=== PATIENT | male | born 1975 | race Caucasian/White ===

== ENCOUNTER 2019-06-16 10:02 | Inpatient (IN) | payer OTHER, SELFPAY ==
[2019-06-16] VITALS (9 sets, daily range): BP systolic 157–175; BP diastolic 84–109; PULSE 99–136; RESP 22–34; TEMP 36.4–37.1; O2SAT 91–99; BMI 23.9
--- NOTE | ~2019-06-16 | XR_ITS ---
XR chest 2V DATE: 06/16/2019 10:17 INDICATION: Cough. Flu onset 5 days ago. TECHNIQUE: PA and lateral views COMPARISON: 11/18/2009 two-view chest FINDINGS: There are patchy bilateral basilar lower lobe infiltrates. The remaining lung chavez are cl ear. Normal heart size. No hilar or mediastinal enlargement. No pleural effusion or pulmonary vascular con gestion or pneumothorax. IMPRESSION: Bibasilar lower lobe infiltrates, suggesting pneumonia Reviewed, dictated and finalized at location A. FACTURING TEACHER
--- NOTE | 2019-06-16 10:17 | ED.URI ---
HPI - URI/Sore Throat General Chief Complaint: Upper Respiratory Infection Stated Complaint: HAS FLU, R/O PNEUMONIA Time Seen by Provider: 06/16/19 10:12 Source: patient Mode of arrival: ambulatory Limitations: no limitations History of Present Illness HPI Narrative: A 44 y/o male presents to the ED with c/o possible pneumonia. Pt states that on 06/08/19 he started to have nonproductive cough, fever, body aches, and chills. He recently had a flu swab done at [facility] and was diagnosed with Influenza A. Pt adds that the fever, body aches, and chills are resolved, but the cough has now become productive. He reports N/V, chest congestion, SOB with exertion, and fatigue, but denies CP, ABD pain, and diarrhea. Pt notes that the vomiting is due to the cough. He got his flu shot this year. Dr. Neff is his PCP. He has a PMHx of anxiety and is a nonsmoker. MD elicited complaint: other (Possible pneumonia) Pertinent past history: other (Influenza A) Onset (ago): day(s) (8) Consistency: constant Context: other (Recent Influenza A) Associated symptoms: cough (Productive), shortness of breath (With exertion), nausea, vomiting and other (Chest congestion, fatigue) Related Data Home Medications Medication Instructions Recorded Confirmed No Home Medications 06/16/19 06/16/19 Allergies Allergy/AdvReac Type Severity Reaction Status Date / Time No Known Allergies Allergy Verified 06/16/19 10:25 Review of Systems Review of Systems: All systems reviewed & are unremarkable except as noted in HPI and below Constitutional: Constitutional: Denies body ache(s), Denies chills, Reports fatigue and Denies fever(s) Cardiovascular: Cardiovascular: Denies chest pain and Reports other (Chest congestion) Respiratory: Respiratory: Reports cough (Productive) and Reports dyspnea on exertion Gastrointestinal: Gastrointestinal: Denies abdominal pain, Denies diarrhea, Reports nausea and Reports vomiting PMFSH Past Medical History Medical History Anxiety Influenza A Surgical History Surgical History No pertinent past surgical history Family History Family History Father Hypertension Diabetes mellitus Acute myocardial infarction Father No problems noted. Social History Social History (Updated 06/16/19 @ 15:26 by Kvng Redding MD) Social History: . Resides in his own home with his spouse. Has grown children 1 in college. 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 Smoking status: Never smoker Alcohol intake: never Substance use: never Living arrangements: with family Occupation/Education: occupation Gender identity (if verbalized by the patient): Male Spiritual care concerns: No Agree to blood products: Yes Exam Const: General: cooperative, no acute distress and alert Nutritional Appearance: well nourished Orientation/consciousness: patient oriented x3 Limitations: no limitations HENMT: Mouth: Yes lip normal, Yes moist mucous membranes and Yes other (Phlegm in back of throat) Resp: Effort & Inspection: normal respiratory effort Auscultation: rhonchi (Scattered, most prominent in left lung base) Cardio: Rate: tachycardic Rhythm: regular rhythm GI: GI Palp: Yes Soft to palpation and No Tenderness to palpation present (GI) Auscultation: normal bowel sounds Skin: General skin exam: normal color Neuro: General: patient oriented x3 Cognition (Neuro): normal cognition Speech: normal speech Extrem: General: normal to inspection, full ROM and no clubbing, cyanosis or edema Psych: Mental Status: mental status grossly normal Affect: normal affect Attitude: cooperative Course Course Emergency Course: Patient presents to the emergency department with tachycardia, tachypnea, and worsening respiratory symptoms after having recently been diagno
[2019-06-16 10:54] LABS: Basophils Percent Auto 0.2 % (0.2-1.2); Hematocrit 47.6 % (42.0-52.0); Hemoglobin 16.1 g/dL (14.0-18.0); Immature Granulocyte Absolute 1.82 K/mm3 (0.00-0.031); Immature Granulocyte Percent A 12.1 % (0-0.5); Lymphocytes Absolute Auto 1.05 K/mm3 (0.9-3.2); Mean Corpuscular HGB Conc 33.8 g/dl (32-36); Mean Corpuscular Hemoglobin 28.9 pg (26-34); Mean Corpuscular Volume 85.3 fl (80-100); Mean Platelet Volume 9.3 fl (7.4-10.4); Monocytes Absolute Auto 1.4 K/mm3 (0.1-0.6); Monocytes Percent Auto 9.4 % (2.6-8.5); Neutrophils Absolute Auto 10.8 K/mm3 (1.3-6.7); Neutrophils Percent Auto 71.3 % (45.5-73.1); Platelet Count Result 393 k/mm3 (150-375); Red Blood Count 5.58 M/mm3 (4.6-6.20); Red Cell Distribution Width 12.1 % (11.5-14.5); White Blood Count 15.1 K/mm3 (4.5-10.0)
[2019-06-16 11:04] LABS: INR 1.1; Partial Thromboplastin Time 25.1 SECONDS (22.3-36.8); Prothrombin Time 13.7 Seconds (11.1-14.7)
[2019-06-16 11:10] LABS: Add Urine Microscopic? YES; Appearance Urine Clear (Clear); Bilirubin Urine Negative (Negative); Blood Urine 1+ (Negative); Color Urine Straw (Yellow); Glucose Urine UA 3+ mg/dL (Negative); Ketones Urine 2+ mg/dL (Negative); Leukocyte Esterase Ur Negative LEU/UL (Negative); Mucus Urine Rare /lpf; Nitrate Urine Negative (Negative); Protein Urine 2+ mg/dL (Negative); Squamous Epithelial Cell Urine Rare /hpf (Few); Urobilinogen Urine Negative mg/dL (<2.0); WBC Urine 0-3 /hpf
[2019-06-16 11:10] LABS: Alanine Aminotransferase 25 U/L (4-50); Albumin Level 4.3 g/dL (3.5-5.1); Alkaline Phosphatase 239 U/L (38-126); Aspartate Amino Transferase 30 U/L (17-59); Bilirubin,Total 0.8 mg/dL (0.2-1.3); Blood Urea Nitrogen 16 mg/dL (9-20); Carbon Dioxide 12 mmol/L (22-30); Chloride 90 mmol/L (98-107); Estimated CRCL calculation 105 ml/min; Estimated Glomerular Filt Rate > 60; Potassium 4.2 mmol/L (3.4-5.0); Sodium 133 mmol/L (137-145)
[2019-06-16 11:15] LABS: Glucose 511 mg/dL (75-110)
[2019-06-16 11:29] LABS: CRP 25.4 mg/dL (<1.0)
--- NOTE | 2019-06-16 13:05 | PC.NURSE ---
pulse ox 91%. placed on 2l via nc
--- NOTE | 2019-06-16 13:32 | ADMGEN ---
This patient, Lebron aDcosta ., was admitted to IMU Room 207-01. Patient/family oriented to hospital policies and general routines including ID bracelet, bed and alarms, visiting hours, pain management, procedures, bathroom and other care routines, personal items, smoking policy, room service/diet, and visiting hours. Valuables list has been completed. Information on how to activate the Rapid Response Team has been discussed. Patient/Family are encouraged to report perceived risks to care and to ask questions if they do not understand what they are told or what they should do.
[2019-06-16] MEDS: LACTATED RINGERS 1,000 ML 150 ML IV CONT ×2 (13:40→20:19)
[2019-06-16 13:42] LABS: Glucose Point of Care 363 (65-105)
--- NOTE | 2019-06-16 15:22 | PM.IMHP ---
H&P: HPI History of Present Illness Chief complaint: Sepsis/Pneumonia Narrative: Lebron Dacosta Jr. is a 44 year old male who was in his usual and excellent state of health until about 1 week ago. He flew to [place] 9 days ago and returned 6 days ago. About 7 days ago he began have a nonproductive cough and sore throat with some hoarseness. He had some body aches but no fevers or chills or sweats. He felt worse on the trip home. He went to urgent care and had a flu swab that was positive. Because he was otherwise relatively young and healthy the recommended symptomatic treatment only as he had already been ill for a couple of days. He was getting better until about 2 days ago when he began to have a productive cough and worsened body aches. He coughed up yellow sputum. He had mild aching in both lateral chest tejada with coughing. He was very fatigued. Poor appetite. Not eating and drinking much. On the day of admission he was short of breath with walking across the room at home so he presented to the emergency department. Denied other chest pain. Denied wheezing. Denied fevers or chills or diaphoresis. Denied abdominal pain nausea vomiting or diarrhea. Denied dysuria hematuria. Denied melena hematochezia. Denied rash or itching. Denied back pain or joint pain or joint swelling. Did have some headache is part of the body aches but nothing severe. Review of Systems Review of Systems: All systems reviewed & are unremarkable except as noted in HPI and below PMFSH Past Medical History Medical History Anxiety Influenza A Surgical History Surgical History No pertinent past surgical history Family History Family History Father Hypertension Diabetes mellitus Acute myocardial infarction Father No problems noted. Social History Social History (Updated 06/16/19 @ 15:26 by Kvng Redding MD) Social History: . Resides in his own home with his spouse. Has grown children 1 in college. 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 Smoking status: Never smoker Alcohol intake: never Substance use: never Living arrangements: with family Occupation/Education: occupation Gender identity (if verbalized by the patient): Male Spiritual care concerns: No Agree to blood products: Yes Meds Home Medications and Allergies Home Medications Medication Instructions Recorded Confirmed Type No Home Medications 06/16/19 06/16/19 History Allergies Allergy/AdvReac Type Severity Reaction Status Date / Time No Known Allergies Allergy Verified 06/16/19 10:25 Vital Signs Vital Signs - 24 hr 06/16/19 10:24 06/16/19 13:04 06/16/19 14:00 Temperature 97.6 F Pulse Rate 136 H 116 H 123 H Respiratory Rate 34 H 30 H Blood Pressure 175/109 H 162/94 H Pulse Oximetry 98 91 Exam Narrative: Exam Narrative: HEENT: EOMI, PERRL, mild posterior pharyngeal erythema without exudates NECK: No JVD, adenopathy, or thyromegaly CHEST: Bilateral lower lobe rhonchi and coarse crackles. HEART: NL S1/S2, regular, no murmur ABDOMEN: BS+, soft, nontender, no mass, no bruits EXTREMITIES: No cyanosis, edema, or clubbing NEUROLOGIC: CN intact and symmetric to inspection. MUSCULOSKELETAL: Tone and strength symmetric. PSYCH: Alert. Oriented to person, place, and time. H&P: Results Labs Labs: Short CBC 06/16/19 Range/Units 10:47 WBC 15.1 H (4.5-10.0) K/mm3 Hgb 16.1 (14.0-18.0) g/dL Hct 47.6 (42.0-52.0) % Plt Count 393 H (150-375) k/mm3 BMP 06/16/19 10:47 Sodium 133 L Potassium 4.2 Chloride 90 L Carbon Dioxide 12 L BUN 16 Creatinine 0.80 Glucose 511 H* Calcium 10.0 Liver Function 06/16/19 Range/Units 10:47 Total Bilirubin 0.8 (0.2-1.3) mg/dL AST 30 (17-59) U/L ALT 25 (4-50) U/L
[2019-06-16 16:59] LABS: Glucose Point of Care 345 (65-105)
[2019-06-16] MEDS: INSULIN ASPART (*BKC) 100 UNITS/ML SUB-Q (18:05)
[2019-06-16] MEDS: INSULIN GLARGINE (*BKC) 100 UNITS/ML 15 UNITS SUB-Q (20:19)
[2019-06-16 20:25] LABS: Glucose Point of Care 384 (65-105)
[2019-06-17] VITALS (14 sets, daily range): BP systolic 148–168; BP diastolic 85–95; PULSE 78–125; RESP 16–20; TEMP 36.1–37.6; O2SAT 94–99; BMI 24.0
[2019-06-17] MEDS: LACTATED RINGERS 1,000 ML 150 ML IV CONT (04:12)
[2019-06-17 04:57] LABS: Hematocrit 40.8 % (42.0-52.0); Hemoglobin 13.9 g/dL (14.0-18.0); Mean Corpuscular HGB Conc 34.1 g/dl (32-36); Mean Corpuscular Hemoglobin 28.9 pg (26-34); Mean Corpuscular Volume 84.8 fl (80-100); Mean Platelet Volume 8.8 fl (7.4-10.4); Platelet Count Result 322 k/mm3 (150-375); Red Blood Count 4.81 M/mm3 (4.6-6.20); Red Cell Distribution Width 11.9 % (11.5-14.5); White Blood Count 13.2 K/mm3 (4.5-10.0)
[2019-06-17 05:22] LABS: Hemoglobin A1C 11.2 % (<5.7); LDL Cholesterol Direct 108 mg/dL
[2019-06-17 05:37] LABS: Blood Urea Nitrogen 10 mg/dL (9-20); Calcium 8.7 mg/dL (8.4-10.2); Carbon Dioxide 13 mmol/L (22-30); Chloride 99 mmol/L (98-107); Cholesterol 164 mg/dL (0-200); Estimated CRCL calculation 136 ml/min; Estimated Glomerular Filt Rate > 60; Glucose 279 mg/dL (75-110); HDL Direct 21 mg/dL; Potassium 3.5 mmol/L (3.4-5.0); Sodium 132 mmol/L (137-145); Triglycerides 167 mg/dL (<150)
[2019-06-17 08:41] LABS: Glucose Point of Care 211 (65-105)
[2019-06-17] MEDS: INSULIN ASPART (*BKC) 100 UNITS/ML SUB-Q ×4 (09:24→17:09)
[2019-06-17] MEDS: ATORVASTATIN 20 MG TABLET PO (10:44)
[2019-06-17 13:34] LABS: Glucose Point of Care 280 (65-105)
--- NOTE | 2019-06-17 14:23 | PCDIET ---
Reviewed carbohydrate counting with patient and ; both were highly motivated to adhere to recommendations. Various initial questions answered. Discussed importance of consistent intake and eating in the morning (patient normally skips breakfast meal). Provided suggestions for meals/snacks. Reviewed carbohydrate containing foods, serving sizes, label reading, fiber, healthy preparation methods, avoidance of unhealthy fats, etc. Patient generally reports healthy diet with fruits, vegetables, lean meats, but plans to work on eating something at breakfast and modifying portion size. Provided booklet Diabetes Management with RD contact information. Encouraged patient/spouse to call with any questions or concerns. Patient interested in outpatient nutrition referral once PCP is established.
[2019-06-17 17:05] LABS: Glucose Point of Care 326 (65-105)
--- NOTE | 2019-06-17 19:03 | PM.IMPN ---
Progress Note: A&P Assessment and Plan (1) CAP (community acquired pneumonia): Qualifiers: Laterality: unspecified laterality Qualified Code(s): J18.9 - Pneumonia, unspecified organism Code(s): J18.9 - Pneumonia, unspecified organism Status: Acute Assessment and Plan: Influenza a with secondary bacterial pneumonia and sepsis Continue IV fluid, ceftriaxone and azithromycin and vancomycin, with oxygen p.r.n. Clinically improved (2) Influenza A: Code(s): J10.1 - Influenza due to other identified influenza virus with other respiratory manifestations Status: Acute Assessment and Plan: Resolving but now with secondary bacterial pneumonia (3) Sepsis: Qualifiers: Sepsis type: sepsis due to unspecified organism Sepsis acute organ dysfunction status: without acute organ dysfunction Qualified Code(s): A41.9 - Sepsis, unspecified organism Code(s): A41.9 - Sepsis, unspecified organism Status: Acute Assessment and Plan: Due to influenza a with secondary bacterial pneumonia Evidence by leukocytosis, tachycardia, source of infection (4) Type 2 diabetes mellitus with hyperglycemia: Code(s): E11.65 - Type 2 diabetes mellitus with hyperglycemia Status: Acute Assessment and Plan: Continue basal and premeal insulin 06/17 add sliding scale Diabetic Ed and Personnel Manager to see 06/17 Possibly home 06/18-06/19 Subjective Date/time seen: 06/17/19 09:05 Review of Systems Review of Systems: All systems reviewed & are unremarkable except as noted in HPI and below Exam Narrative: Exam Narrative: HEENT: EOMI, PERRL, mild posterior pharyngeal erythema without exudates NECK: No JVD CHEST: Bilateral lower lobe rhonchi HEART: NL S1/S2, regular, no murmur ABDOMEN: BS+, soft, nontender, no mass, no bruits EXTREMITIES: No cyanosis, edema, or clubbing NEUROLOGIC: CN intact and symmetric to inspection. MUSCULOSKELETAL: Tone and strength symmetric. PSYCH: Alert. Oriented to person, place, and time. Objective Data Vital Signs Vital Signs: Vital Signs - 24 hr 06/16/19 19:53 06/16/19 20:00 06/16/19 22:00 Temperature 98.2 F Pulse Rate 117 H 116 H 99 Respiratory Rate 22 H Blood Pressure 164/90 H Pulse Oximetry 99 06/17/19 00:00 06/17/19 00:19 06/17/19 02:00 Temperature 97.0 F L Pulse Rate 98 106 H 99 Respiratory Rate 20 Blood Pressure 151/95 H Pulse Oximetry 99 06/17/19 04:00 06/17/19 04:26 06/17/19 06:00 Temperature 98.2 F Pulse Rate 102 H 104 H 92 Respiratory Rate 20 Blood Pressure 157/85 H Pulse Oximetry 94 06/17/19 07:27 06/17/19 10:00 06/17/19 12:00 Temperature 98.8 F 98.6 F Pulse Rate 110 H 125 H 112 H Respiratory Rate 20 18 Blood Pressure 157/93 H 155/85 H Pulse Oximetry 98 99 06/17/19 16:00 Temperature 98.1 F Pulse Rate 116 H Respiratory Rate 16 Blood Pressure 167/91 H Pulse Oximetry 97 Intake/Output Intake/Output: Intake & Output 06/14/19 06/15/19 06/16/19 06/17/19 23:59 23:59 23:59 23:59 Intake Total 4840 4415 Output Total 1775 1000 Balance 3065 3415 Meds/Results Medications: Active Medications Generic Name Dose Route Start Last Admin Trade Name Freq PRN Reason Stop Dose Admin Acetaminophen 650 mg 06/16/19 12:13 Tylenol Tablet PO Q4H PRN Mild Pain (1-3) or Fever Atorvastatin Calcium 20 mg 06/17/19 09:00 06/17/19 10:44 Lipitor PO 20 mg DAILY DAYLIN Administration Dextrose 12.5 gm 06/16/19 15:46 Dextrose 50% Syringe IV PUSH PRN PRN Hypoglycemia Protocol Glucagon 1 mg 06/16/19 15:46 Glucagon For Inj IM PRN PRN Hypoglycemia Protocol Glucose 15 gm 06/16/19 15:46 Glutose 15 PO PRN PRN Hypoglycemia Protocol Ceftriaxone Sodium/Dextrose 1 gm in 50 mls @ 100 mls/hr 06/17/19 09:00 06/17/19 11:20 Rocephin 1 Gm/D5w 50 Ml IVPB Infused Q24H DAYLIN [facility]
--- NOTE | 2019-06-17 19:55 | PC.NURSE ---
This patient, Lebron Metcalfpramod Victoria, was received from [ IMU] on 06/17/19 at 1955. Personal belongings list checked and signed. Patient/family oriented to unit policies and routines
--- NOTE | 2019-06-17 19:56 | PC.NURSE ---
This patient, Lebron Dacosta ., was transferred to [facility] on 06/17/19 at 1956. Personal belongings sent with patient. Belongings list checked and signed with receiving. Report given to Linda JOHNSON. Appropriate documentation sent with patient.
--- NOTE | 2019-06-17 21:01 | PC.NURSE ---
Called Caridad Sheldon RN regarding the patient's LR order since it is not infusing and in report I was told the patient is saline locked. Caridad Sheldon RN from IMU states that the ordered LR is not supposed to be going and for some reason they are unable to get the order off of the patient's MAR.
[2019-06-17] MEDS: INSULIN GLARGINE (*BKC) 100 UNITS/ML 15 UNITS SUB-Q (21:06)
[2019-06-17 21:14] LABS: Glucose Point of Care 276 (65-105)
[2019-06-17 23:46] LABS: Vancomycin Trough < 5.0 ug/mL (10.0-20.0)
[2019-06-18 06:00] VITALS: BP 155/94; PULSE 106; RESP 16; TEMP 36.9; O2SAT 96
[2019-06-18 06:04] LABS: Hematocrit 35.8 % (42.0-52.0); Hemoglobin 12.7 g/dL (14.0-18.0); Mean Corpuscular HGB Conc 35.5 g/dl (32-36); Mean Corpuscular Hemoglobin 28.8 pg (26-34); Mean Corpuscular Volume 81.2 fl (80-100); Mean Platelet Volume 8.8 fl (7.4-10.4); Platelet Count Result 288 k/mm3 (150-375); Red Blood Count 4.41 M/mm3 (4.6-6.20); Red Cell Distribution Width 11.7 % (11.5-14.5); White Blood Count 11.9 K/mm3 (4.5-10.0)
[2019-06-18 06:26] LABS: Blood Urea Nitrogen 8 mg/dL (9-20); Calcium 8.1 mg/dL (8.4-10.2); Carbon Dioxide 18 mmol/L (22-30); Chloride 96 mmol/L (98-107); Estimated CRCL calculation 195 ml/min; Estimated Glomerular Filt Rate > 60; Glucose 247 mg/dL (75-110); Potassium 2.8 mmol/L (3.4-5.0); Sodium 131 mmol/L (137-145)
[2019-06-18] MEDS: POTASSIUM CHLORIDE 20 MEQ TABLET.ER 40 MEQ PO (06:39)
[2019-06-18 08:03] LABS: Glucose Point of Care 215 (65-105)
[2019-06-18] MEDS: INSULIN ASPART (*BKC) 100 UNITS/ML SUB-Q ×5 (08:20→18:36)
[2019-06-18] MEDS: ATORVASTATIN 20 MG TABLET PO (08:23)
[2019-06-18 11:37] LABS: Glucose Point of Care 244 (65-105)
[2019-06-18] MEDS: POTASSIUM CHLORIDE 20 MEQ TABLET 40 MEQ PO ×2 (11:54→18:35)
[2019-06-18 14:00] VITALS: BP 153/95; PULSE 118; RESP 16; TEMP 36.6; O2SAT 98
[2019-06-18] MEDS: ONDANSETRON INJ 4 MG/2 ML VIAL IV PUSH (14:17)
[2019-06-18 14:22] LABS: Blood Urea Nitrogen 11 mg/dL (9-20); Calcium 8.2 mg/dL (8.4-10.2); Carbon Dioxide 19 mmol/L (22-30); Chloride 99 mmol/L (98-107); Estimated CRCL calculation 161 ml/min; Estimated Glomerular Filt Rate > 60; Glucose 306 mg/dL (75-110); Potassium 3.3 mmol/L (3.4-5.0); Sodium 131 mmol/L (137-145)
[2019-06-18 15:20] VITALS: PULSE 131; O2SAT 97
[2019-06-18 15:25] VITALS: PULSE 141; O2SAT 96
[2019-06-18 15:35] VITALS: PULSE 130; O2SAT 96
--- NOTE | 2019-06-18 16:42 | HOMEO2EVAL ---
Home Oxygen Evaluation RC: Home Oxygen (O2) Evaluation Start: 06/18/19 08:00 Freq: ONCE Status: Active Protocol: RPE Activity Type Activity Date Activity User E-Sign Co-Sign Detail Recorded Client Recorded Date Recorded By Document 06/18/19 15:20 NIKOS [id number] 06/18/19 16:42 NIKOS Document 06/18/19 15:25 NIKOS [id number] 06/18/19 16:42 NIKOS Document 06/18/19 15:35 NIKOS [id number] 06/18/19 16:42 NIKOS 06/18/19 06/18/19 06/18/19 15:20 15:25 15:35 Home O2 Evaluation Test Phase Resting Exercise Resting Oxygen Delivery Room Air Room Air Room Air Pulse Oximetry (90-100 %) 97 96 96 Pulse Rate (60-100 beats/min) 131 H 141 H 130 H Home Oxygen Evaluation Comments no home o2 needs
--- NOTE | 2019-06-18 16:42 | PCRCNOTE ---
Home O2 eval done, no home O2 needs.
[2019-06-18 17:06] LABS: Glucose Point of Care 276 (65-105)
--- NOTE | 2019-06-18 20:13 | PC.NURSE ---
Patient discharged @1845. IV was removed. Patient left via POV with . Discharge instructions read and verbalized understanding.
--- NOTE | 2019-06-20 18:35 | PM.DS ---
DS: Diagnosis Admitting Diagnosis Admitting Diagnosis: Pneumonia, unspecified organism Discharge Diagnosis (1) CAP (community acquired pneumonia): Qualifiers: Laterality: unspecified laterality Qualified Code(s): J18.9 - Pneumonia, unspecified organism Code(s): J18.9 - Pneumonia, unspecified organism Status: Acute Assessment and Plan: Influenza a diagnosis 1 week prior with secondary bacterial pneumonia and sepsis on admission. , ceftriaxone and azithromycin and vancomycin, x3 days and will receive 4 days of levofloxacin 750 p.o. on discharge Clinically improved with falling white blood cell count Blood cultures were negative at the time of discharge (2) Sepsis: Qualifiers: Sepsis type: sepsis due to unspecified organism Sepsis acute organ dysfunction status: without acute organ dysfunction Qualified Code(s): A41.9 - Sepsis, unspecified organism Code(s): A41.9 - Sepsis, unspecified organism Status: Acute Assessment and Plan: Due to influenza a with secondary bacterial pneumonia Evidence by leukocytosis, tachycardia, source of infection WBC down to 11 by discharge (3) Type 2 diabetes mellitus with hyperglycemia: Code(s): E11.65 - Type 2 diabetes mellitus with hyperglycemia Status: Acute Assessment and Plan: Continue basal and premeal insulin, Lantus 15 units HS and novel log 4 units a.c. 06/17 add sliding scale Diabetic Ed and Front Office Administrator saw 06/17 instructed on self administration of insulin, general diabetes Education, and diet A1c was just above 13 and FBS was 247 the day of discharge. DS: Summary Hospital Course Hospital Course: 44-year-old white male admitted 1 week post influenza with history increasing cough weakness found to have pneumonia with with sepsis and new onset diabetes mellitus. A1c was above 13. Treated with ceftriaxone azithromycin and vancomycin x3 days and discharged on levofloxacin 750 daily for 4 more days. Seen by quality assurance inspector is started on insulin Lantus 15 HS and 4 of novel log with meals. Was a little hesitant in discharging patient but his cultures have been negative days white count had fallen to 11 and he was feeling much better. He was also threatening to leave the hospital against medical advice. He did agree to follow-up with his primary care and not returned to work for 1 week Time Spent with Patient Time attestation: Total time spent providing and/or coordinating discharge services: 35 minutes Exam Narrative: Exam Narrative: Condition on discharge Blood pressure 150/90 pulse is 102 regular respirations only 16 per minute afebrile saturating 96% on room air Lungs still crackle in the bases CV tachy no murmurs Abdomen is soft nontender no masses Extremities without edema good distal pulses Neuro alert no focal deficits With taking diet well and ambulating without assistance DS: Data Data Completed and Pending Labs on day of discharge: Preliminary micro results at discharge 06/16/19 10:45 Blood Culture - Preliminary Blood 06/16/19 10:45 Blood Culture - Preliminary Blood Discharge Plan Discharge Attending physician on discharge: Edgardo Conroy Consulting providers: Yair Head Discharging Clinician: Edgardo Conroy Patient Disposition: Home, Self-Care Activity: as tolerated Diet: regular Patient Instructions: Antibiotic Form, Pain Management (DC), Pneumonia (DC), Diabetic Hyperglycemia (DC) Stand Alone Forms: General Discharge Information, Work/School Release IP Follow-up/Referrals: Yair Head MD [Physician] - 2 Weeks Discharge Medications: New levofloxacin [Levaquin] 750 mg tablet 750 mg PO DAILY Qty: 5 RF: 0 Lantus Solostar U-100 Insulin 100 unit/mL (3 mL) insulin pen 15 unit SUB-Q HS Qty: 15 RF: 5 insulin aspart U-100 [Novolog Flexpen U-100 Insulin] 100 unit/mL (3 mL) insulin pen 4 unit SUB-Q TID Qty: 15 RF: 5 (DME) lanc
== END 2019-06-18 18:45 | disposition home or self-care (01) | DRG 195 ==
LOC: ANHED 12:15 → ANHIMU 14:00 → ANH3MEDSUR 06-18 00:58 → ANHIMU 06-21 06:59
PROVIDERS: Internal Medicine; Admitting Provider Family Medicine; Emergency Provider Emergency Medicine; Visit Provider Internal Medicine
DX: J11.08 Influenza due to unidentified influenza virus with specified pneumonia (principal); J15.9 Unspecified bacterial pneumonia; E11.65 Type 2 diabetes mellitus with hyperglycemia; F41.9 Anxiety disorder, unspecified; E86.0 Dehydration
CPT/HCPCS: 36415; 71046; 80048; 80053; 80061; 80202; 81001; 83036; 83605; 84443; 85025; 85027; 85610; 85730; 86140; 87040; 87804; 96361; 96365; 96366; 96367; 96375; 96376; 99285; A9270; G0378; J0456; J0696; J1815; J2405; J3370; J7120